=== PATIENT | female | born 1960 | race Caucasian/White ===

== ENCOUNTER → 2018-09-20 | Outpatient (CLI) | payer BC ==
--- NOTE | 2018-09-22 10:55 | MM ---
Reason for exam: screening (asymptomatic). Last mammogram was performed 1 year and 6 months ago. History: Patient had first child at age 50. Family history of breast cancer in maternal aunt at age 70 and breast cancer in sister at age 54. Physical Findings: A clinical breast exam by your physician is recommended on an annual basis and results should be correlated with mammographic findings. MG 3D Screening Mammo W/Cad Bilateral CC and MLO view(s) were taken. Prior study comparison: April 01, 2017, mammogram, performed at [facility]. February 20, 2015, mammogram, performed at [facility]. The breast tissue is extremely dense which could obscure a lesion on mammography. No significant changes when compared with prior studies. ASSESSMENT: Benign, BI-RAD 2 RECOMMENDATION: Routine screening mammogram of both breasts in 1 year.
== END ==
LOC: RADMAMWWP 14:47
PROVIDERS: ATTEND Obstetrics & Gynecology
DX: Z12.31 Encounter for screening mammogram for malignant neoplasm of breast (principal)
CPT/HCPCS: 77063; 77067

== ENCOUNTER → 2018-12-03 | Outpatient (CLI) | payer BC ==
[2018-12-03 15:12] LABS: HCT 40.3 % (34.0-46.0); HGB 12.6 gm/dL (11.4-16.0); MCH 29.3 pg (25.0-35.0); MCHC 31.3 g/dL (31.0-37.0); MCV 93.7 fL (80.0-100.0); Mean Platelet Volume 7.1; Platelet Count 218 k/uL (150-450); RDW 12.5 % (11.5-15.5); WBC 5.2 k/uL (3.8-10.6)
[2018-12-03 23:07] LABS: T4, Free (Free Thyroxine) 0.9 ng/dL (0.80-1.80)
[2018-12-03 23:12] LABS: Albumin 4.3 g/dL (3.80-4.90); Albumin/Globulin Ratio 1.87 (1.60-3.17); Anion Gap 7.5 mmol/L (4.00-12.00); Calcium 9.6 mg/dL (8.7-10.3); Carbon Dioxide 29.5 mmol/L (21.6-31.8); Globulin 2.3 g/dL (1.6-3.3); LDL Cholesterol,Calculated 110.6 mg/dL (0.0-131.0); Potassium 4.6 mmol/L (3.5-5.5); Total Bilirubin 0.6 mg/dL (0.2-1.2); Total Protein 6.6 g/dL (6.2-8.2); VLDL Calculation 10.4 mg/dL (5.00-40.00)
== END | disposition home or self-care (01) ==
LOC: LABWHC1 14:51
PROVIDERS: ATTEND Family Medicine
DX: Z00.00 Encounter for general adult medical examination without abnormal findings (principal)
CPT/HCPCS: 36415; 80053; 80061; 84439; 84443; 85027

== ENCOUNTER → 2021-04-02 | Outpatient (CLI) | payer BC ==
--- NOTE | 2021-04-04 08:45 | MM ---
Reason for exam: screening (asymptomatic). Last mammogram was performed 2 years and 6 months ago. History: Patient is postmenopausal and had first child at age 50. Family history of breast cancer in maternal aunt at age 70 and breast cancer in sister at age 54. Physical Findings: A clinical breast exam by your physician is recommended on an annual basis and results should be correlated with mammographic findings. MG 3D Screening Mammo W/Cad Bilateral CC and MLO view(s) were taken. Prior study comparison: September 20, 2018, bilateral MG 3d screening mammo w/cad. April 01, 2017, mammogram, performed at [facility]. The breast tissue is heterogeneously dense. This may lower the sensitivity of mammography. No significant changes when compared with prior studies. ASSESSMENT: Benign, BI-RAD 2 RECOMMENDATION: Routine screening mammogram of both breasts in 1 year.
== END | disposition home or self-care (01) ==
LOC: RADMAMWWP 13:54
PROVIDERS: ATTEND Family Medicine
DX: Z12.31 Encounter for screening mammogram for malignant neoplasm of breast (principal); Z80.3 Family history of malignant neoplasm of breast; Z78.0 Asymptomatic menopausal state
CPT/HCPCS: 77063; 77067

== ENCOUNTER → 2022-11-26 | Outpatient (CLI) | payer BC ==
--- NOTE | 2022-11-26 15:55 | MM ---
Reason for Exam: Screening (asymptomatic). Last mammogram was performed 1 year(s) and 8 month(s) ago. Patient History: Menarche at age 14. First Full-Term at age 50. Late child-bearing (after 30). Postmenopausal. Maternal aunt had breast cancer, age 70. Sister had breast cancer, age 54. Risk Values: Anne 5 year model risk: 3.0%. NCI Lifetime model risk: 13.9%. Prior Study Comparison: 04/01/2017 Screening Mammogram, [facility]. 09/20/2018 Bilateral Screening Mammogram, [facility]. 04/02/2021 Bilateral Screening Mammogram, [facility]. Tissue Density: The breast tissue is extremely dense which could obscure a lesion on mammography. Findings: Analyzed By CAD. There is no suspicious group of microcalcifications or new suspicious mass in either breast. Overall Assessment: Negative, BI-RAD 1 Management: Screening Mammogram of both breasts in 1 year. A clinical breast exam by your physician is recommended on an annual basis and results should be correlated with mammographic findings. [facility] will attempt to contact patient to return for supplemental views and ultrasound if indicated. Electronically signed and approved by: Kaleb Funes DO
== END | disposition home or self-care (01) ==
LOC: RADMAMWWP 14:51
PROVIDERS: ATTEND Family Medicine
DX: Z12.31 Encounter for screening mammogram for malignant neoplasm of breast (principal); Z78.0 Asymptomatic menopausal state; Z80.3 Family history of malignant neoplasm of breast
CPT/HCPCS: 77063; 77067

== ENCOUNTER → 2024-01-05 | Outpatient (CLI) | payer BC ==
--- NOTE | 2024-01-05 19:18 | BD ---
EXAMINATION TYPE: Axial Bone Density DATE OF EXAM: 01/05/2024 CLINICAL HISTORY: 63 years old Female. ICD-10 CODE: Z78.0 POSTMENOPAUSAL Height: 63.25 Weight: 126 FRAX RISK QUESTIONS: Family History (Parent hip fracture): no History of Fracture in Adulthood: no Secondary Osteoporosis: no RISK FACTORS HISTORY OF: Surgery to Spine/Hip(right/left)/Wrist (right/left): no MEDICATIONS: Thyroid Medications: no Osteoporosis Medications: no EXAM MEASUREMENTS: Bone mineral densitometry was performed using the [employer] System. Bone mineral density as measured about the Lumbar spine is: ----- L1-L4(G/cm2): 1.022 T Score Values are as follows: ----- L1: -1.6 ----- L2: -2.3 ----- L3: -1.0 ----- L4: -0.6 ----- L1-L4: -1.3 Z Score Values are as follows: ----- L1: 0.1 ----- L2: -0.6 ----- L3: 0.6 ----- L4: 1.1 ----- L1-L4: 0.3 Bone mineral density baseline Bone mineral density about the R hip (g/cm2): 0.814 Bone mineral density about the L hip (g/cm2): 0.844 T Score values are as follows: -----R Neck: -1.6 -----L Neck: -1.1 -----R Total: -1.5 -----L Total: -1.3 Z Score values are as follows: -----R Neck: 0.0 -----L Neck: 0.4 -----R Total: -0.3 -----L Total: -0.1 Bone mineral density baseline FRAX%s: The graph provided illustrates a 8.2% chance for a major osteoporotic fx and a 0.9% chance fo r the hips probability for fx in 10 years time. IMPRESSION: Osteopenia (T Score between -2.5 and -1). There is slightly increased risk of fracture and the patient may be considered for treatment. Re-Screen 2-5 years. NOTE: T-SCORE=SD OF THE YOUNG ADULT MEAN.
--- NOTE | 2024-01-06 14:26 | MM ---
Reason for Exam: Screening (asymptomatic). Last mammogram was performed 1 year(s) and 1 month(s) ago. Patient History: Menarche at age 14. Patient has no children. Postmenopausal. Maternal aunt had breast cancer, age 70. Sister had breast cancer, age 50. Sister had breast cancer, age 52. Sister tested for BRCA1 outcome was negative. Risk Values: Anne 5 year model risk: 5.3%. NCI Lifetime model risk: 22.0%. Prior Study Comparison: 09/20/2018 Bilateral Screening Mammogram, [facility]. 04/02/2021 Bilateral Screening Mammogram, [facility]. 11/26/2022 Bilateral MG 3D screening mammo w/cad, [facility]. Tissue Density: The breasts are heterogeneously dense, which may obscure small masses. Findings: Analyzed By CAD. There is no suspicious group of microcalcifications or new suspicious mass. Overall Assessment: Negative, BI-RAD 1 Management: Screening Mammogram of both breasts in [address] [facility] will attempt to contact patient to return for supplemental views and ultrasound if indicated. Patient should continue monthly self-breast exams. A clinical breast exam by your physician is recommended on an annual basis. This exam should not preclude additional follow-up of suspicious palpable abnormalities. Note on Anne scores and lifetime risk: 1. A Anne score greater than 3% is considered moderate risk. If this is the case, consider specialist referral to assess eligibility for a risk reducing agent. 2. If overall lifetime risk for the development of breast cancer is 20% or higher, the patient may qualify for future screening with alternating mammogram and breast MRI. Electronically signed and approved by: Kaleb Funes DO
== END | disposition home or self-care (01) ==
LOC: RADMAMWWP 15:08
PROVIDERS: ATTEND Obstetrics & Gynecology
DX: Z12.31 Encounter for screening mammogram for malignant neoplasm of breast (principal); Z78.0 Asymptomatic menopausal state; Z80.3 Family history of malignant neoplasm of breast; M85.89 Other specified disorders of bone density and structure, multiple sites
CPT/HCPCS: 77063; 77067; 77080

== ENCOUNTER → 2025-02-09 | Outpatient (CLI) | payer BC ==
--- NOTE | 2025-02-13 11:08 | MM ---
Reason for Exam: Screening (asymptomatic). Last mammogram was performed 1 year(s) and 1 month(s) ago. Patient History: Menarche at age 14. Patient has no children. Postmenopausal. Maternal aunt had breast cancer, age 70. Sister had breast cancer, age 50. Sister had breast cancer, age 52. Sister tested for BRCA1 outcome was negative. Risk Values: Anne 5 year model risk: 5.4%. NCI Lifetime model risk: 21.4%. Prior Study Comparison: 04/02/2021 Bilateral Screening Mammogram, [facility]. 11/26/2022 Bilateral MG 3D screening mammo w/cad, [facility]. 01/05/2024 Bilateral MG 3D screening mammo w/cad, [facility]. Tissue Density: The breasts are heterogeneously dense, which may obscure small masses. Findings: There is no suspicious group of microcalcifications or new suspicious mass in either breast. Overall Assessment: Benign, BI-RAD 2 Management: Screening Mammogram of both breasts in 1 year. Patient should continue monthly self-breast exams. A clinical breast exam by your physician is recommended on an annual basis. This exam should not preclude additional follow-up of suspicious palpable abnormalities. Note on Anne scores and lifetime risk: 1. A Anne score greater than 3% is considered moderate risk. If this is the case, consider specialist referral to assess eligibility for a risk reducing agent. 2. If overall lifetime risk for the development of breast cancer is 20% or higher, the patient may qualify for future screening with alternating mammogram and breast MRI. [facility], , 02/13/2025 7:42 AM. Electronically signed and approved by: Erich Pandey M.D. Radiolog[facility]
== END | disposition home or self-care (01) ==
LOC: RADMAMWWP 15:07
PROVIDERS: ATTEND Obstetrics & Gynecology
DX: Z12.31 Encounter for screening mammogram for malignant neoplasm of breast (principal); R92.333 Mammographic heterogeneous density, bilateral breasts; Z78.0 Asymptomatic menopausal state; Z80.3 Family history of malignant neoplasm of breast
CPT/HCPCS: 77063; 77067